=== PATIENT | male | born 1970 | race Caucasian/White ===

== ENCOUNTER → 2024-01-27 14:10 | Outpatient (REF) | payer BC, SELFPAY | LOC: RCS 14:10 | PROVIDERS: ATTENDING PHYSICIAN Thoracic Surgery (Cardiothoracic Vascular Surgery); FAMILY PHYSICIAN Family Medicine | DX: Z98.890 Other specified postprocedural states (principal) | CPT/HCPCS: 93306 ==

== ENCOUNTER → 2025-01-27 10:14 | Outpatient (REF) | payer BC, SELFPAY | LOC: RCS 10:14 | PROVIDERS: ATTENDING PHYSICIAN Thoracic Surgery (Cardiothoracic Vascular Surgery) | DX: Z98.890 Other specified postprocedural states (principal) | CPT/HCPCS: 93306 ==